=== PATIENT | male | born 1935 | race Hispanic/Latino ===

== ENCOUNTER → 2022-11-09 | Outpatient (CLI) | payer OTHER ==
[~2022-11-09] MED LIST: LEVO-70 PO; LOSA1TAB54 PO; METO200T49 PO; NIFE90TA65 PO; PRAV20TA4 PO
== END | disposition home or self-care (01) ==
LOC: RAH 10:43
PROVIDERS: ATTEND Family Medicine
DX: I11.9 Hypertensive heart disease without heart failure (principal); I07.1 Rheumatic tricuspid insufficiency
CPT/HCPCS: 93306

== ENCOUNTER 2022-12-22 20:52 | Emergency (ER) | payer OTHER ==
[~2022-12-22] VITALS: Ht 162.6 cm; Wt 75.3 kg
[2022-12-22 21:59] VITALS: BP 138/75
[2022-12-22] MEDS ORDERED: IBUP-1493 PO (21:59)
[2022-12-22] MEDS ORDERED: AMOX1TAB16 PO (21:59)
[2022-12-22] MEDS ORDERED: AMOX/CLAV 875/125MG TAB PO ONE (22:00)
[2022-12-22] MEDS ORDERED: IBUPROFEN 600 MG TABLET PO ONE (22:00)
== END 2022-12-22 22:17 | disposition home or self-care (01) ==
LOC: EDH 20:52
DX: K13.79 Other lesions of oral mucosa (principal)